=== PATIENT | male | born 1950 | race Two or more races ===

== ENCOUNTER 2024-12-09 14:26 | Emergency (ER) | payer MEDICARE, OTHER ==
[~2024-12-09] VITALS: Ht 182.9 cm; Wt 71.7 kg
[2024-12-09 14:27] VITALS: TEMP 97.5
[2024-12-09 14:55] VITALS: BP 99/66; PULSE 96; RESP 18; O2SAT 95
--- NOTE | 2024-12-09 17:17 | ED.PDOC ---
Back pain HPI HPI Comments HPI: Poor Historian. 74-year-old male presents to emergency department for evaluation of low back pain acute on chronic. He said he had this pain for at least 30 years but lately he has been moving and lifting has been sleeping on the ground in a tent which contributing to his pain. He takes occasional aspirin for pain control. Denies any other acute symptoms. Denies any cauda equina like symptoms. Patient points specifically to bilateral lower lumbosacral region where his pain is. His pain is worse when he stands and walks and better when he sits and rests. Patient states when the pain shoots bilaterally to posterior thighs sometimes. He states has a history of sciatica. Denies any recent fall or trauma. Past Medical History: Denies any Past Surgical History: Denies any REVIEW OF SYSTEMS: CONSTITUTIONAL: Denies acute: fever, diaphoresis, chills, generalized weakness. HEAD: Denies acute: headache, photophobia Eyes: Denies acute: Double vision, vision loss, eye pain, eye discharge. EARS: Denies acute: tinnitus, hearing loss, ear discharge, ear pain, THROAT: Denies acute: sore throat, swelling, difficulty swallowing , pain with swallowing, change in voice. NECK: Denies acute: neck pain, neck swelling, stiff neck. HEART: Denies acute : chest pain, palpitations, LUNGS: Denies acute: SOB, wheezing, cough, hemoptysis ABDOMEN: Denies acute: abdominal pain, Nausea, Vomiting, diarrhea, melena , hematemesis, hematochezia SKIN: Denies acute: rash, redness, lesions, itchiness. EXTREMITIES: Denies acute: calf pain, numbness, tingling, weakness, denies pain in extremity. Denies acute: Low back pain. Neuro: Denies acute: focal neurological deficit, motor or sensory focal neurological deficit, tremors, seizure like activity, confusion, dizziness, change in mental status, loss of bowel or bladder function, cauda equina like symptoms. : Denies acute: dysuria, hematuria, flank pain, increase in urinary frequency. PSYCH: Denies acute: hallucination, suicidal ideation, homicidal ideation. PHYSICAL EXAM: General: ---mild-----acute distress, awake and alert. Head: normocephalic, atraumatic. Neck: supple, trachea is midline, no swelling. Throat: Normal phonation. Eyes:, no erythema, no purulent discharge, no proptosis, no icterus. Heart: regular rate, regular rhythm, no significant murmur appreciated. Lungs: no apparent respiratory distress, Able to speak in full sentences. No wheezing, no rhonchi, no crackles. No stridors Clear to auscultation bilaterally. Abdomen: non tender to palpation, non distended, soft, no guarding, no rebound, + bowel sounds. Neuro: Awake, Alert, oriented to name, self, situation, follows commands GCS=15. Speech is normal. Skin: no petechia, no purpura, no cyanosis, non-pale, not jaundice. Lower extremities: --no - Pitting edema no deformity, no focal swelling, no calf TTP. Makes eye contact. moves all four extremities. Face: no apparent facial droop. Ambulating in the ED independently. ED COURSE: DISCLAIMER: This medical document was created using an electronic medical record system with voice recognition software and computerized dictation system. Although this docu ment has been carefully reviewed, there might still be some phonetic and typographical errors. Occasional wrong-word or "sound-alike" substitutions may have occurred due to the inherent limitations of voice recognition software. These areas are purely typographical due to imperfections of the software programs and do not reflect any compromise in the patient's medical care. Please read the chart carefully and recognize, using context, where these substitutions have occurred. Chief Complaint: Back Pain Time Seen by MD: 15:17 Allergies: Coded Allergies: Penicillins (Verified Allergy, Severe, 12/09/24) Mode of Arrival: Ambulatory X-Ray, Labs, Meds, VS Vital Signs Date Time Temp Pulse Resp B/P (MAP) Pulse Ox O2 Delivery O2 Flow Rate FiO2 12/09/24 14:55 96 18 95 Room Air 12/09/24 14:55 94 18 99/66 (77) 94 12/09/24 14:27 97.5 100 15 112/68 96 97.5 Departure 1 Departure Time of Disposition: 17:16 Impression: Primary Impression: Lumbar radiculopathy Additional Impression: Low back pain Disposition: 01 HOME / SELF CARE / HOMELESS Additional Instructions: Additional instructions: Please read all instructions provided in this packet carefully. You MUST follow-up with your primary care/family doctor in 1 to 2 days. If you are unable to see your primary care/family doctor, please return to our emergency room for re-assessment and re-evaluation in 1 to 2 days. Return to the emergency room here in our facility or to the nearest ER [facility] if your symptoms change or worsen. CONSULTATIONS: you MUST Follow-up for consultation as soon as possible with: -orthopedic doctor in 1-2 days. Please call for appointment. You MUST call the consultants office yourself to make an appointment. You may need to arrange that through your insurance and/or your primary/family doctor. If you are unable to see the data migration consultant in 1 to 2 days, you must return to our emergency room (or any other ER of your choice) for re-assessment and re- evaluation. Adequate fluid hydration. Although you have been discharged from the Emergency Department, this does not mean that you have a "clean bill of health". No definitive diagnosis for your symptoms has been made today. It is possible that you are in the process of de veloping a serious illness. This is why you must return to the ED without fail if any new or worsening symptoms develop. No heavy lifting. Use [id number] ibuprofen with food as instructed for pain control. Discharged With: Self ZENAIDA ARROYO DO Dec 09, 2024 17:17
[2024-12-09] MEDS: KETOROLAC TROMETH 60MG/2ML VIAL IM ONE (17:31)
[2024-12-09] MEDS: HYDROcodone-ACET 5/325MG TAB PO ONE (17:31)
== END 2024-12-09 18:15 | disposition home or self-care (01) ==
LOC: ER 14:26
DX: M54.16 Radiculopathy, lumbar region (principal); M54.50 Low back pain, unspecified; Z88.0 Allergy status to penicillin; G89.29 Other chronic pain
CPT/HCPCS: 96372; 99284; J1100; J1885